=== PATIENT | female | born 1990 | race Two or more races ===

== ENCOUNTER 2019-01-25 15:50 | Inpatient (IN) | payer MEDICAID, OTHER | END 2019-01-27 16:30 | disposition home or self-care (01) | LOC: LDRP 15:50 | PROC: 10E0XZZ Delivery of Products of Conception, External Approach (ICD-10-PCS; principal; ~2019-01-25) | PROC: 0HQ9XZZ Repair Perineum Skin, External Approach (ICD-10-PCS; ~2019-01-25) | DX: O41.03X0 Oligohydramnios, third trimester, not applicable or unspecified (principal); Z37.0 Single live birth; Z3A.39 39 weeks gestation of pregnancy ==

== ENCOUNTER 2019-03-02 12:46 | Emergency (ER) | payer MEDICAID ==
[~2019-03-02] VITALS: Ht 167.6 cm; Wt 113.4 kg
[~2019-03-02 12:46] MED LIST: PREN27TA7 OR
[2019-03-02 13:48] VITALS: BP 116/70
[2019-03-02] MEDS ORDERED: CEFTRIAXONE SODIUM 2 GM in D5W 5% 50 ML IV ONE (14:30)
[2019-03-02] MEDS ORDERED: KETOROLAC TROMETH 15 mg/ml 1ML VL IV ONE (14:30)
[2019-03-02] MEDS ORDERED: cefTRIAXone 1GM/50ML D5W 100 ML IV ONE (14:50)
== END 2019-03-02 15:44 | disposition home or self-care (01) ==
LOC: ER 12:48
DX: N61.0 Mastitis without abscess (principal)
CPT/HCPCS: 96365; 96375; 99283; J0696; J1885; J7060

== ENCOUNTER 2020-04-22 12:45 | Observation (INO) | payer MEDICAID | END 2020-04-22 14:35 | disposition home or self-care (01) | LOC: LDRP 12:45 | PROVIDERS: ADMIT Specialist; ATTEND Specialist | DX: O36.8130 Decreased fetal movements, third trimester, not applicable or unspecified (principal); Z3A.39 39 weeks gestation of pregnancy | CPT/HCPCS: 59025; 84112; G0378; Q0114; 81002 ==

== ENCOUNTER 2020-04-23 19:46 | Observation (INO) | payer MEDICAID ==
[2020-04-24] MEDS ORDERED: miSOPROStol 50 MCG per PRE-CUT 1/2 TAB ONE (01:26)
== END 2020-04-23 21:56 | disposition left against medical advice (07) ==
LOC: LDRP 19:46 → INTOOBSV 19:46 → OBSVTOIN 19:46
PROVIDERS: ADMIT Specialist; ATTEND Specialist
DX: O41.03X0 Oligohydramnios, third trimester, not applicable or unspecified (principal); Z3A.39 39 weeks gestation of pregnancy
CPT/HCPCS: 59025; 76818; 81002; G0378

== ENCOUNTER 2020-04-23 23:28 | Inpatient (IN) | payer MEDICAID ==
[~2020-04-23] VITALS: Ht 170.2 cm; Wt 124.3 kg
[2020-04-23] MEDS ORDERED: LACT. RINGERS/OXYTOCIN 20UNITS 1,000 ML IV SCH (23:57)
[2020-04-24] MEDS ORDERED: WITCH HAZEL-GLYCERIN PAD TOP PRN
[2020-04-24] MEDS ORDERED: METHYLERGONOVINE MALEATE 0.2 MG/ML AMP IM PRN
[2020-04-24] MEDS ORDERED: DERMOPLAST 60ML BOTTLE TOP PRN
[2020-04-24] MEDS ORDERED: LIDOCAINE 2%HCL (LOCAL ANESTH.) INJ 20ML MDV ID ONE
[2020-04-24 01:42] LABS: INR 0.94 (0.9-1.15); Partial Thromboplastin Time 24.7 sec (23.0-31.2)
[2020-04-24 01:46] LABS: Urine Bacteria MOD /hpf (None Seen); Urine Blood Negative /uL (Negative); Urine Mucus FEW (None Seen); Urine WBC 10 /hpf (0 - 5)
[2020-04-24 01:47] LABS: Albumin 2.2 g/dL (3.4-5.0); Basophils # (auto) 0 10 ^3/uL (0-0.2); Basophils % (auto) 0.3 % (0.0-2.0); Calcium 8.7 mg/dL (8.5-10.1); Eosinophils # (auto) 0.1 10 ^3/uL (0-0.8); Eosinophils % (auto) 0.9 % (0.0-7.0); Hematocrit 30.1 % (36.0-46.0); Hemoglobin 10.1 g/dL (12.2-16.2); Lymphocytes # (auto) 2.7 10 ^3/uL (0.4-5.4); Lymphocytes % (auto) 24.2 % (10.0-50.0); Mean Corpuscular Hemoglobin 28.8 pg (28.0-32.0); Mean Corpuscular Hgb Conc. 33.7 g/dL (32.0-36.0); Mean Corpuscular Volume 85.5 fL (80.0-100.0); Monocytes # (auto) 0.9 10 ^3/uL (0-1.3); Monocytes % (auto) 8.1 % (0.0-12.0); Neutrophils # (auto) 7.4 10 ^3/uL (1.6-8.6); Neutrophils % (auto) 66.5 % (37.0-80.0); Platelet Count (auto) 308 10^3/uL (140-450); Potassium 3.5 mmol/L (3.5-5.1); Red Blood Cells 3.52 10^6/uL (4.0-5.20); Red Cell Distribution Width 14.6 % (11.8-14.3); White Blood Cell 11.2 10^3/uL (4.4-10.8)
[2020-04-24 01:51] LABS: BUN/Creatinine Ratio 12.5
[2020-04-24 01:56] LABS: Alcohol, Urine < 3.0 mg/dL (0-10); Amphetamine Screen, Urine NEGATIVE (NEGATIVE); Barbiturate Scree,Urine NEGATIVE (NEGATIVE); Benzodiazephine Screen, Urine NEGATIVE (NEGATIVE); Cannabinoid Screen, Urine NEGATIVE (NEGATIVE); Cocaine Screen, Urine NEGATIVE (NEGATIVE); Opiate Scree,Urine NEGATIVE (NEGATIVE); Phencyclidine Screen, Urine NEGATIVE (NEGATIVE)
[2020-04-24 01:57] LABS: Bilirubin, Total 0.2 mg/dL (0.2-1.0); Total Protein 6.4 g/dL (6.4-8.2)
[2020-04-24] MEDS: LACTATED RINGER'S 1,000 ML IV SCH ×2 (04:12→10:07)
[2020-04-24] MEDS: miSOPROStol 50 MCG per PRE-CUT 1/2 TAB PO PRN ×3 (05:45→14:15)
[2020-04-25 05:07] LABS: RPR Non Reactive (Non Reactive)
[2020-04-25] MEDS: LACTATED RINGER'S 1,000 ML IV SCH (05:59)
[2020-04-25] MEDS ORDERED: BUTORPHANOL TARTRATE 2 MG/1 ML VIAL IV PRN (09:45)
[2020-04-25] MEDS ORDERED: LIDOCAINE 2%HCL (LOCAL ANESTH.) INJ 20ML MDV ID ONE (12:30)
[2020-04-25] MEDS ORDERED: PHISODERM TOP SOLN 240ML BTL TOP PRN (12:30)
[2020-04-25] MEDS: IBUPROFEN 600 MG TAB PO PRN ×4 (15:59→23:39)
--- NOTE | 2020-04-25 16:00 | NUR ---
Teaching: Reviewed information in [employer] booklet with patient. Discussed benefits of and risks associated with not . Discussed different positions, proper latch, feeding cues, and baby-led . Provided information of medication side effects related to . All questions and concerns addressed at this time. Patient verbalized understanding of information.
--- NOTE | 2020-04-25 16:45 | NUR ---
Ambulation: Patient OOB with standby assistance by RN. Patient ambulated to bathroom with steady gait. Patient able to void without difficulty. [facility] teaching provided with returned demonstration by patient. Clean gown provided and bed linen changed. Patient ambulated back to bed with steady gait and no distress noted.
--- NOTE | 2020-04-25 18:44 | NUR ---
PT COMPLAINS OF PAIN OF 03/21. DOCTOR CARLEY CALLED FOR BREAKTHROUGH PAIN MEDICATION. ORDERS RECEIVED TO CONTINUE MOTRIN. RN WILL MONITOR PATIENTS PAIN
[2020-04-25 19:00] VITALS: BP 115/53
--- NOTE | 2020-04-25 20:00 | NUR ---
PT IS REQUESTING BOTTLE FOR BABY. ENCOURAGED PATIENT TO CONTINUE BREAST FEEDING. NURSE WILL HELP WITH POSITIONING. PT STILL REQUESTING BOTTLE EDUCATION GIVEN TO MOTHER TO BREAST FEED BEFORE FEEDING BOTTLE. PT VERBALIZED UNDERSTANDING
[2020-04-25 23:00] VITALS: BP 91/53
[2020-04-26 03:00] VITALS: BP 101/56
[2020-04-26] MEDS: IBUPROFEN 600 MG TAB PO PRN ×3 (03:11→12:04)
[2020-04-26 07:30] VITALS: BP 111/57
[2020-04-26 11:05] VITALS: BP 116/63
--- NOTE | 2020-04-26 14:00 | NUR ---
IV REMOVAL IV removal IV DC'd with clean technique, catheter fully intact. Pressure dressing applied to site. Patient tolerated procedure well.
[2020-04-26 15:00] VITALS: BP 109/72
--- NOTE | 2020-04-26 18:00 | NUR ---
Discharge: Discharge instructions given as ordered. Pt encouraged to follow up with [facility] DELIVERY [employer]IVER as instructed. All questions and concerns addressed. Patient verbalized understanding. Medication reconciliation completed and copy given to patient. All required/requested vaccines given and copies of vaccinations given to patient. Patient encouraged to prepare to depart unit.
--- NOTE | 2020-04-26 18:05 | NUR ---
BS REPORT Care relinquished to SENDY Dewitt. Pt already signs DC papers, and SENDY RN to wheel pt to car, and complete remaining DC interventions.
[2020-04-26 18:10] VITALS: BP 112/67
[2020-04-26 18:16] VITALS: BP 112/67
--- NOTE | 2020-04-26 18:16 | NUR ---
Discharge: Patient taken to vehicle via wheelchair with all personal belongings, accompanied by staff and family member. No distress noted at time of departure, no adverse changes in status since initial assessment.
== END 2020-04-26 18:16 | disposition home or self-care (01) | DRG 560 ==
LOC: LDRP 23:28
PROVIDERS: ADMIT Specialist; ATTEND Specialist
PROC: 10E0XZZ Delivery of Products of Conception, External Approach (ICD-10-PCS; principal; 2020-04-25)
PROC: 0W8NXZZ Division of Female Perineum, External Approach (ICD-10-PCS; 2020-04-25)
PROC: 3E033VJ Introduction of Other Hormone into Peripheral Vein, Percutaneous Approach (ICD-10-PCS; 2020-04-25)
PROC: 3E0P7VZ Introduction of Hormone into Female Reproductive, Via Natural or Artificial Opening (ICD-10-PCS; 2020-04-25)
PROC: 0HQ9XZZ Repair Perineum Skin, External Approach (ICD-10-PCS; 2020-04-25)
DX: O69.81X0 Labor and delivery complicated by cord around neck, without compression, not applicable or unspecified (principal); O41.03X0 Oligohydramnios, third trimester, not applicable or unspecified; Z3A.39 39 weeks gestation of pregnancy; Z37.0 Single live birth; Z03.818 Encounter for observation for suspected exposure to other biological agents ruled out
CPT/HCPCS: 36415; 59025; 59409; 76815; 80053; 80307; 81001; 84112; 85025; 85610; 85730; 86592; 86850; 86900; 86901; 87426; 96360; 96361; 96366; G0378; J2590